=== PATIENT | female | born 1985 | race Caucasian/White ===

== ENCOUNTER → 2016-09-11 | Outpatient (CLI) | payer BC ==
[~2016-09-11] MED LIST: PRENTAB26 PO
== END | disposition home or self-care (01) ==
LOC: C.PAPS 14:43
PROVIDERS: ATTEND Obstetrics & Gynecology
DX: Z34.01 Encounter for supervision of normal first pregnancy, first trimester (principal)

== ENCOUNTER → 2016-09-11 | Outpatient (CLI) | payer BC ==
[2016-09-11 09:22] LABS: BASO % 0.1 %; BASO ABS # 0.01 K/uL (0-0.2); COMPLETE YES; EOS % 0.9 %; HEMATOCRIT 38.3 % (37-47); IG% 0.1 %; LYMPH % 25.6 %; LYMPH ABS # 2.01 K/uL (1.2-3.4); MEAN CELL VOLUME 81.3 fL (80-100); MEAN CORPUSCULAR HEMOGLOBIN 28.5 pg (25-34); MEAN PLATELET VOLUME 9.5 fL (7.4-10.4); MONO % 7.8 %; NEUT % 65.5 %; PLATELET COUNT 238 K/uL (130-400); RED BLOOD COUNT 4.71 M/uL (4.2-5.4); WHITE BLOOD COUNT 7.84 K/uL (4.8-10.8)
[2016-09-14 12:35] LABS: CHLAMYDIA TRACH RNA*** NOT DETECTED (NOT DETECTED); GC (NEIS GONORRHOEAE)RNA** NOT DETECTED (NOT DETECTED)
== END | disposition home or self-care (01) ==
LOC: C.LAB1850 08:35
PROVIDERS: ATTEND Obstetrics & Gynecology
DX: Z34.01 Encounter for supervision of normal first pregnancy, first trimester (principal)

== ENCOUNTER → 2016-11-06 | Outpatient (CLI) | payer BC ==
[2016-11-06 11:43] LABS: GTGD 50 Grams
== END | disposition home or self-care (01) ==
LOC: C.LAB1850 09:12
PROVIDERS: ATTEND Obstetrics & Gynecology
DX: Z34.02 Encounter for supervision of normal first pregnancy, second trimester (principal)

== ENCOUNTER → 2017-01-29 | Outpatient (CLI) | payer BC ==
[2017-01-29 10:33] LABS: HEMATOCRIT 39.5 % (37-47)
[2017-01-29 10:44] LABS: ESTIMATED AVERAGE GLUCOSE 123 mg/dl; HA1C FLAG Normal (Normal)
[2017-01-29 11:00] LABS: BLOOD UREA NITROGEN 13 mg/dl (7-18); CALCIUM 8.5 mg/dl (8.5-10.1); CARBON DIOXIDE 24 mmol/L (21-32); CHLORIDE 109 mmol/L (98-107); CREATININE 0.66 mg/dl (0.60-1.20); GLUCOSE 145 mg/dl (70-99); POTASSIUM 3.9 mmol/L (3.5-5.1); SODIUM 141 mmol/L (136-145)
[2017-01-29 12:28] LABS: URINE APPEARANCE TURBID (CLEAR); URINE BILIRUBIN NEG (NEG); URINE COLOR YELLOW; URINE EPITHELIAL CELL AUTO >30 /lpf (0-5); URINE NITRITE NEG (NEG); URINE SPECIFIC GRAVITY 1.032 (1.000-1.030); UROBILINOGEN NEG (NEG)
[2017-01-29 12:37] LABS: MANUAL MICROSCOPIC REQUIRED? NO; REVIEW REQ? NO
== END | disposition home or self-care (01) ==
LOC: C.LAB1850 10:01
PROVIDERS: ATTEND Obstetrics & Gynecology
DX: O24.414 Gestational diabetes mellitus in pregnancy, insulin controlled (principal)

== ENCOUNTER → 2017-03-30 | Outpatient (CLI) | payer BC | END | disposition home or self-care (01) | LOC: C.LABSPEC 14:50 | PROVIDERS: ATTEND Obstetrics & Gynecology | DX: Z34.03 Encounter for supervision of normal first pregnancy, third trimester (principal) ==

== ENCOUNTER 2017-04-01 23:20 | Inpatient (IN) | payer BC ==
[~2017-04-01] VITALS: Ht 170.2 cm; Wt 135.0 kg
[2017-04-02 00:02] VITALS: Ht 170.2 cm; Wt 135.0 kg
[2017-04-02] MEDS ORDERED: LACTATED RINGER'S 1000ML 1,000 ML IV PRN (00:11)
[2017-04-02] MEDS ORDERED: MISOPROSTOLTAB 50 MCG TAB PO ONE (00:15)
[2017-04-02 01:00] LABS: HEMATOCRIT 38.2 % (37-47); MEAN CELL VOLUME 87.8 fL (80-100); MEAN CORPUSCULAR HEMOGLOBIN 29.7 pg (25-34); MEAN CORPUSCULAR HGB CONC 33.8 g/dl (32-36); MEAN PLATELET VOLUME 10.1 fL (7.4-10.4); PLATELET COUNT 237 K/uL (130-400); RED BLOOD COUNT 4.35 M/uL (4.2-5.4); WHITE BLOOD COUNT 12.68 K/uL (4.8-10.8)
[2017-04-02] MEDS ORDERED: MISOPROSTOLTAB 50 MCG TAB ONE (02:28)
[2017-04-02] MEDS ORDERED: LACTATED RINGER'S 1000ML 500 ML IV PRN ×2 (06:41→12:19)
[2017-04-02] MEDS ORDERED: OXYTOCIN 30 UNITS/500ML NSS IV PRN (06:45)
[2017-04-02] MEDS: LACTATED RINGER'S 1000ML 1,000 ML IV SCH ×4 (08:14→19:39)
--- NOTE | 2017-04-02 09:36 | Medical Student: [facility] ---
Medical Student Progress Note Date of Service Apr 02, 2017. Progress Note Martina is a 30 year old female who presented last night due to ROM. She is doing well and rates her pain 5/10. She has not received an epidural but is considering one. EFM shows a baseline of 140 bpm with moderate variability. Accels are present. Absent decels. [place] does not show any ctx but pt reports ctx occurring every 10 min. Cx is 50/-[address] Benavides.
[2017-04-02] MEDS ORDERED: NURSING VERBAL MED ORDER ONE (10:15)
[2017-04-02] MEDS ORDERED: BUTORPHANOL TARTRATE 1 MG/ML VIAL ONE (10:16)
[2017-04-02] MEDS ORDERED: BUTORPHANOL TARTRATE 1 MG/ML VIAL IV PRN (11:00)
[2017-04-02] MEDS ORDERED: EpHEDrine SULFATE INJ 50 MG/ML AMP ONE (11:31)
[2017-04-02] MEDS ORDERED: BUPIVACAINE 0.25% 30 ML VIAL ONE (11:31)
[2017-04-02] MEDS ORDERED: FENTANYL CITRATE INJ 50 MCG/1 ML 2 ML VIAL ONE (11:31)
[2017-04-02] MEDS ORDERED: FENTANYL 2MCG/ML ROPIV 1.25MG/ML 100ML BAG EPI ONE (11:31)
[2017-04-02] MEDS ORDERED: NALOXONE HCL INJ 1 MG in SODIUM CHLORIDE 0.9% 1000ML 1,000 ML IV PRN (12:19)
[2017-04-02] MEDS ORDERED: PROMETHAZINE HCL INJ 6.25 MG in SODIUM CHLORIDE 0.9% 50ML 50 ML IV PRN (12:30)
[2017-04-02] MEDS ORDERED: ONDANSETRON INJ 2 MG/ML 2 ML VIAL IV PRN (12:30)
[2017-04-02] MEDS ORDERED: EpHEDrine SULFATE INJ 50 MG/ML AMP IV PRN (12:30)
[2017-04-02] MEDS ORDERED: NALOXONE HCL INJ 0.4 MG/1 ML VIAL/CARP IV PRN (12:30)
[2017-04-02] MEDS ORDERED: NALBUPHINE HCL INJ 10 MG/ML AMP IV PRN (12:30)
[2017-04-02] MEDS ORDERED: DiphenhydrAMINE HCL 50 MG/ML VIAL IV PRN (12:30)
[2017-04-02] MEDS: FENTANYL 2MCG/ML ROPIV 1.25MG/ML 100ML BAG EPI PRN ×2 (18:59→19:17)
[2017-04-02] MEDS ORDERED: ACETAMINOPHEN 500 MG TAB PO STA (20:55)
[2017-04-02] MEDS ORDERED: ACETAMINOPHEN 500 MG TAB PO ONE (20:56)
[2017-04-02] MEDS ORDERED: AMPICILLIN INJ 2,000 MG in SODIUM CHLORIDE 0.9% 50ML 50 ML IV SCH (22:00)
[2017-04-02] MEDS: AMPICILLIN IV 2,000 MG in SODIUM CHLOR 0.9% AD-VAN 100ML 100 ML IV SCH (22:38)
--- NOTE | 2017-04-02 22:54 | Pharmacy Progress Note ---
Pharmacy Abx Initial Consult Date of Service Apr 02, 2017. Pharmacy Dosing Scope Date of Consult: 04/02/17 Consultation requested by: Dr. Posada Pharmacy is consulted to initiate IV Gentamicin therapy, order appropriate labs and adjust drug dose/frequency. Subjective The patient is a 31 year old female admitted on Apr 02, 2017 at 00:13 with ruptured membranes. Pharmacy has received orders to initiate Ampicillin + Gentamicin IV. Objective Height (Feet): 5 Height (Inches): 7.00 Weight (Kilograms): 135.000 Lab Results (24Hrs) Laboratory Tests (24 Hours) Test 04/02/17 00:27 White Blood Count 12.68 K/uL (4.8-10.8) H Assessment & Plan Plan Gentamicin * Patient does not meet criteria for extended-interval aminoglycoside dosing due to ; will dose per traditional dosing * Dose: 210mg (~2.3mg/kg adjusted body weight) IV Q 8 hours * P'kinetic parameters: Vd 0.3L/kg; half-life ~4-5 hours * will check peak and trough levels with 4th dose * Goal peak: 6-8mcg/mL; Goal trough less than 1mcg/mL Pharmacy will continue to follow and will adjust dose/frequency as necessary. Thank you.
[2017-04-02] MEDS: DEXTROSE 5% IV SCH (23:28)
[2017-04-02] MEDS: GENTAMICIN IV SCH (23:28)
[2017-04-03] VITALS (7 sets, daily range): BP systolic 124–148; BP diastolic 69–89; PULSE 76–103; TEMP 36.6–37.2; O2SAT 98
[2017-04-03] MEDS ORDERED: OXYCODONE/ACETAMINOPHEN 5-325 TAB PO PRN (00:30)
[2017-04-03] MEDS ORDERED: LANOLIN OINT EXT PRN ×2 (00:30)
[2017-04-03] MEDS ORDERED: OXYTOCIN 30 UNITS/500ML NSS IV PRN (00:30)
[2017-04-03] MEDS ORDERED: BENZOCAINE 20% AER SPR 82.5 GM CAN EXT PRN (00:30)
[2017-04-03] MEDS ORDERED: HYDROCORTISONE ACETATE 25 MG SUPP PR PRN (00:30)
[2017-04-03] MEDS ORDERED: SUPERCREAM 0.870 % 15GM JAR EXT PRN (00:30)
[2017-04-03] MEDS: AMPICILLIN IV 2,000 MG in SODIUM CHLOR 0.9% AD-VAN 100ML 100 ML IV SCH (04:05)
[2017-04-03] MEDS: GENTAMICIN IV SCH (07:28)
[2017-04-03] MEDS: DEXTROSE 5% IV SCH (07:28)
--- NOTE | 2017-04-03 08:01 | OB/GYN Progress Note ---
[facility] Progress Note Date of Service Apr 03, 2017. Subjective conversation w/ patient, physical exam, chart review, lab review Ambulation: limited ambulation (to bathroom) Voiding: no voiding problems Passing Gas: Yes Diet Tolerance: Regular Diet Lochia: Small Feeding Type: Breast Feeding Pain: Denies much pain/cramping Review of Systems Constitutional: No fever, No chills Respiratory: No cough, No shortness of breath Cardiac: No chest pain Abdomen: No nausea, No vomiting, No diarrhea Female : No dysuria Objective Vital Signs Date Time Temp Pulse Resp B/P (MAP) Pulse Ox O2 Delivery O2 Flow Rate FiO2 04/03/17 07:52 Room Air 04/03/17 07:48 36.8 103 16 130/84 (99) Room Air 04/03/17 04:10 36.7 99 16 127/69 (88) Room Air 04/03/17 02:00 Room Air 04/03/17 02:00 37.2 94 18 139/72 (94) Room Air Physical Exam General Appearance: WELL-APPEARING, WD/WN, NO APPARENT DISTRESS Respiratory/Chest: no respiratory distress Cardiovascular: regular rate, rhythm Abdomen: non tender, soft Fundus: Firm, Tender (minimal, appropriate), Relation to Umbilicus (at umbilicus) Extremities: normal range of motion, non-tender, no pedal edema, no calf tenderness Exam by Dr. Posada Laboratory Results Last 24 Hours Test 04/02/17 12:48 04/02/17 19:08 04/02/17 22:05 Bedside Glucose 95 mg/dl 70 mg/dl 96 mg/dl Assessment and Plan Post- Day Number: 1 Continue Routine Care: 31yo s/p vaginal delivery, now PPD #1. - Blood type A positive. GBS negative. Rubella immune. - Vital signs reviewed and stable. Afebrile. Covering for chorioamnionitis with ampicillin & gentamicin. - Denies much pain. Received tylenol yesterday evening. - No leg swelling or tenderness on calf palpation. Encourage ambulation. - Encourage breast feeding. - Hemoglobin pre-delivery 12.9, post-delivery pending this am. Bleeding has improved. Continue to monitor clinically. - Continue post-vaginal delivery care. - Pt agreed with above plan, all current questions answered. Silvino Weaver MD, PGY1 Hand Thermal Cutter Physician Supervision Note: I was present with Dr. Weaver during the history and exam. I discussed the case with the resident and agree with the findings and plan as documented in the note. Any exceptions or clarifications are listed here: PPD#1 doing well. Continue routine care. For Chorioamnionitis: rec'd 1 dose of ampicillin 2g and gentamicin 1.5mg/kg prior to delivery, continued with one additional dose of each after delivery. Patient is afebrile. Documented By: Puja Posada Resident Tracking Resident Involvement: Resident Care Provided Care Provided: OB Delivery (morning rounds)
--- NOTE | 2017-04-03 09:14 | DELIVERY SUMMARY ---
DATE OF OPERATION: 04/02/2017 DATE OF DELIVERY: 04/02/2017 PREDELIVERY DIAGNOSES: 1. 31-year-old G2, P0-0-1-0 at 37 weeks 1 day. 2. Spontaneous rupture of membranes. 3. Gestational diabetes mellitus A2. 4. Chorioamnionitis. POSTDELIVERY DIAGNOSES: 1. 31-year-old G2, P0-0-1-0 at 37 weeks 1 day. 2. Spontaneous rupture of membranes. 3. Gestational diabetes mellitus A2. 4. Chorioamnionitis. PROCEDURE: Spontaneous vaginal delivery and repair of second degree perineal laceration. DELIVERING SURGEON: Dr. Posada. ESTIMATED BLOOD LOSS: 300 mL. FINDINGS: Viable male with Apgars 8 and 10. Weight 5 lb. 13.4 oz. COURSE OF LABOR: The patient was given 1 dose of oral Cytotec after presenting to labor and delivery with spontaneous rupture of membranes. She was 1 cm dilated upon arrival. She had minimal response to Cytotec and therefore was started on Pitocin. She began to progress with cervical dilation and progressed to complete. During labor she did have variable decelerations inconsistently throughout and an amnioinfusion was used to successfully treat variable decels. After the patient was completely dilated she began to push and during pushing the patient pushed for approximately 2.5 hours. The heart rate became tachycardic and maternal temperature elevated as high as 99.7 degrees fahrenheit however I believe this was artificially low given that we had just dosed the patient with 1000 mg of Tylenol for headache. Therefore the patient was diagnosed with chorioamnionitis and she received 1 dose of ampicillin 2 grams and approximately half of the dosage of gentamicin 1.5 mg/kg prior to delivery. The patient progressed to complete and pushed and then spontaneously vaginally delivered a viable male in the cephalic presentation with the head in left occiput anterior position. The head delivered and the shoulders delivered at the same time as well as the body. There was a cord wrapped around the body. This was untangled and the baby was placed on mother's abdomen. The cord was doubly clamped and cut. A spontaneous cry was heard as the baby was being passed to the pediatrics team. Cord segment was retained for gasses. Cord blood was obtained and the placenta delivered spontaneously intact with 3-vessel cord. Pitocin was given, the uterus became firm. The vagina and uterus were swept of all clots and debris. The bladder was emptied with a red rubber catheter for 400 mL of clear yellow urine. The cervix, vagina and perineum were inspected and a second degree perineal laceration was noted. This was repaired in standard fashion with 3-0 Vicryl in a running stitch. Excellent hemostasis was achieved. Sponge, instrument and needle counts were correct x2 at the conclusion of the delivery. Mother and baby recovered well in the room in stable and good condition. We will give 1 additional dose of ampicillin and 1 dose of gentamicin after delivery for prevention of endomyometritis. The patient and baby tolerated the delivery well and sponge, instrument and needle counts were correct x2. I attest to the content of the Intraoperative Record and any orders documented therein. Any exception s are noted below.
--- NOTE | 2017-04-03 10:27 | Anesthesia Procedure Note ---
Anesthesia Epidural Removal Nt Date & Time Apr 03, 2017 at 10:27 Vital Signs Pain Intensity: 0.0 Vital Signs Past 12 Hours Date Time Temp Pulse Resp B/P (MAP) Pulse Ox O2 Delivery O2 Flow Rate FiO2 04/03/17 07:52 Room Air 04/03/17 07:48 36.8 103 16 130/84 (99) Room Air 04/03/17 04:10 36.7 99 16 127/69 (88) Room Air 04/03/17 02:00 Room Air 04/03/17 02:00 37.2 94 18 139/72 (94) Room Air Notes Mental Status: alert / awake / arousable, participated in evaluation Nausea / Vomiting: adequately controlled Pain: adequately controlled Airway Patency, RR, SpO2: stable & adequate BP & HR: stable & adequate Hydration State: stable & adequate Neuraxial Anesthesia: was administered Anesthetic Complications: no major complications apparent, pt satisfied with anesthetic care Epidural: removed without complications, with tip intact
[2017-04-03] MEDS: DOCUSATE SODIUM 100 MG CAP PO SCH ×2 (11:46→20:09)
[2017-04-03] MEDS: IBUPROFEN 600 MG TAB PO PRN ×2 (11:46→21:10)
[2017-04-03] MEDS ORDERED: GENT. PEAK 1 EA IV ONE (23:00)
[2017-04-04] MEDS: IBUPROFEN 600 MG TAB PO PRN ×2 (06:22→11:53)
[2017-04-04 06:36] LABS: HEMATOCRIT 34.2 % (37-47)
[2017-04-04 07:50] VITALS: BP 128/84; PULSE 80; TEMP 36.7
[2017-04-04] MEDS: DOCUSATE SODIUM 100 MG CAP PO SCH (07:56)
--- NOTE | 2017-04-04 09:26 | Progress Note ---
Subjective Apr 04, 2017. Subjective conversation w/ patient, physical exam Ambulation: ambulating normally Voiding: no voiding problems Passing Gas: Yes Diet Tolerance: Regular Diet Lochia: Moderate Feeding Type: Breast Feeding Review of Systems Constitutional: No fever, No chills Respiratory: No cough Cardiac: No chest pain Abdomen: No nausea, No vomiting Objective Vital Signs Date Time Temp Pulse Resp B/P (MAP) Pulse Ox O2 Delivery O2 Flow Rate FiO2 04/03/17 23:25 36.8 91 20 130/89 (103) Room Air 04/03/17 23:25 Room Air 04/03/17 19:25 36.8 101 18 148/85 (106) Room Air 04/03/17 19:25 Room Air 04/03/17 16:10 36.8 76 16 124/83 (97) 98 Room Air 04/03/17 16:10 98 Room Air 04/03/17 11:11 36.6 85 18 128/86 (100) Physical Exam General Appearance: WELL-APPEARING, NO APPARENT DISTRESS Respiratory/Chest: no respiratory distress, no accessory muscle use Cardiovascular: no edema Abdomen: non tender, soft Fundus: Firm Extremities: no pedal edema, no calf tenderness Laboratory Results Last 24 Hours Test 04/04/17 06:14 Hemoglobin 11.4 g/dL Hematocrit 34.2 % Assessment and Plan Problem List Medical Problems: (1) Positive test Status: Acute (2) Vaginal bleeding Status: Acute Post- Day#: 1 Continue Routine Care: PPD2 vaginal delivery, A2GDM, recovered normally. Desires d/c today.
--- NOTE | 2017-04-04 09:27 | Discharge Instructions ---
Discharge Instructions Date of Service Apr 04, 2017. Admission Reason for Admission: Insulin Controlled Gestational Diabetes Mellitus Discharge Discharge Diagnosis / Problem: Vaginal delivery Discharge Goals Goal(s): Routine recovery after delivery Activity Recommendations Activity Limitations: per Instructions/Follow-up section . Instructions / Follow-Up Instructions / Follow-Up ACTIVITY RECOMMENDATIONS: * Gradual return to full activity over the next 2-3 weeks. * No lifting - nothing heavier than baby over the next 2-3 weeks. * Do not engage in vigorous exercise, sexual activity or sports until cleared by your physician. * Do not drive or operate any motorized equipment until cleared by your physician. * You may shower/bathe daily. MEDICATIONS: For discomfort or pain, you may use Acetaminophen (Tylenol), Ibuprofen (Advil), or Naproxen (Aleve) following the package directions. For constipation you may use Colace following the package directions. BREAST CARE: If you are not breast feeding: * Wear a supportive bra 24 hours a day for one to two weeks. * Avoid stimulating your breasts and nipples as much as possible during the first few weeks after delivery. * When taking a shower, have the warm water hit your back, not breasts. * When your breasts feel full, apply ice packs. Usually three to four times a day helps ease the discomfort. * Take a mild pain medication (Tylenol / Motrin) when you are uncomfortable. If breast feeding: * Use breast milk to lubricate nipples. [place] cream may be used for sore nipples. You do not need to remove cream prior to breast feeding. If using a different brand of cream, check the label for directions regarding removal of cream prior to nursing. * Wear a supportive bra. * If having problems with breasts or breast feeding, call a sr. consultant or your health care provider. EPISIOTOMY CARE: After delivery, if you have an episiotomy (stitches), the following steps will ease discomfort and aid healing. * For the first 24 hours after delivery, place ice packs next to your episiotomy to help reduce swelling. * After the first 24 hour-period, sitz baths, either portable or in the tub, are suggested. A shower with a shower arm sprayed over the episiotomy may be comforting. * Teresa care should be done after each voiding and bowel movement. Squirt warm water from a plastic bottle over the perineum (region of the body between the anus and urinary opening) and pat dry. * Use Dermoplast to ease discomfort. Shake container. [place] directly over the episiotomy. Place a Tucks on a clean sanitary pad next to your episiotomy. SPECIAL CARE INSTRUCTIONS: When you are discharged from the hospital, it is important for you to follow the instructions listed below: * During the first week at home, you should be able to care for yourself and your baby. In addition, the usual light household activities are encouraged. * Limit your activities to the way you feel. Do not try to clean the house or move furniture. Be sensible. * If you actively engage in sports and have done so up until the time of your delivery, you may resume these activities as soon as you feel able. This may take up to one month or even longer. Use good judgment. * Continue to take your vitamins for at least six weeks after the of your baby. * Your diet need not be limited unless you were on a special diet before your delivery. Breast-feeding mothers need around 2500 calories per day and at least 64-80 ounces of fluid per day (8 to 10 glasses). * You should eat foods from the four major food groups. Crash diets or fad diets are to be avoided. Eating lean meats, fresh fruits and vegetables, low-fat dairy products, high fiber foods and a regular exercise program, will help you get back to your pre- weight without putting your health at risk. * Constipation is sometimes a problem after delivery. Take a mild laxative as needed. If breast feeding, Milk of Magnesia is acceptable to use. You may use a suppository or Fleets enema if no episiotomy. * A daily shower or tub bath is suggested. Be sure to thoroughly and gently dry the perineum. * A bloody vaginal discharge will usually continue until around four weeks post . A small amount of bleeding may continue for as long as six weeks. Vaginal discharge changes from the bright red bleeding after delivery to pink then brownish and finally yellowish-pink before becoming white and disappearing. * Bleeding may increase with activity. Your first period may come in 4-8 weeks. If you are breast feeding, your period may be delayed even longer. * [place] (sex) can begin whenever both you and your partner feel comfortable and do not have any form of genital infection. It is recommended that you wait at least six weeks for internal and external healing to occur. If you have questions, please talk to your health care practitioner. A condom should be used to prevent infection and . * Foreplay, gentle intercourse and lubrication is very important the first several times to prevent pain. A water-based lubricant such as K-Y jelly or Astroglide may be used. * If you have RH negative blood and your baby is RH positive, you will receive RHOGAM by injection prior to discharge. The nurse will give you a card to keep with you that has the date and place that you received RHOGAM after delivery. * During your care, you had a Rubella screen done to check for the presence of rubella antibodies in your blood. If your test was negative, you will receive a Rubella vaccine prior to discharge. This vaccine may cause a fever, soreness at the injection site and flu-like symptoms. If these symptoms persist, notify your health care practitioner. is not advised for one month after a Rubella vaccine. * Verbalizes understanding of car seat law as reviewed with patient nursing. * Car Seat hand-out given and reviewed with patient by nursing. * Shaken baby information reviewed with patient by nursing. Call you doctor if: * Heavy bleeding (saturating several pads an hour) or passing clots the size of your fist. * A fever >101 degrees F (38.3 degrees C) on two occasions four hours apart and /or chills. * Unusual pain in the pelvic or vaginal areas. * "Baby Blues" lasting longer than two weeks. If you have any questions or concerns, call your health care practitioner at . FOLLOW UP VISIT: * Please call the office at to schedule a 6 week examination. It is important you keep this appointment. It is important for you to make arrangements for either yearly or twice yearly check-ups thereafter. Current Hospital Diet Patient's current hospital diet: Regular OB Diet Discharge Diet Recommended Diet: Regular Diet Pending Studies Studies pending at discharge: no Laboratory Results Hemoglobin A1c Test 01/29/17 10:06 Range/Units Estimated Average Glucose 123 mg/dl Hemoglobin A1c 5.9 H 4.5-5.6 % Medical Emergencies . Who to Call and When: Medical Emergencies: If at any time you feel your situation is an emergency, please call 911 immediately. . Non-Emergent Contact Non-Emergency issues call your: Primary Care Provider . . "Provider Documentation" section prepared by Sarah Cespedes. . VTE Core Measure Inpt VTE Proph given/why not?: Treatment not indicated
[2017-04-04 12:00] VITALS: BP 123/80; PULSE 73; TEMP 36.5
[2017-04-04 16:00] VITALS: BP 118/82; PULSE 76; TEMP 36.7
[2017-04-04 18:36] VITALS: BP_DIAS 82; PULSE 76; TEMP 36.7
[2017-04-04] MEDS ORDERED: BISACODYL 5 MG TABEC PO SCH (20:00)
== END 2017-04-04 18:38 | disposition home or self-care (01) | DRG 775 ==
LOC: C.OPB 23:20 → C.LD 23:20 → C.OPB 04-02 00:23 → C.OBG 04-03 14:44
PROVIDERS: ADMIT Obstetrics & Gynecology; ATTEND Obstetrics & Gynecology
PROC: 3E0P7GC Introduction of Other Therapeutic Substance into Female Reproductive, Via Natural or Artificial Opening (ICD-10-PCS; principal; 2017-04-02)
PROC: 10E0XZZ Delivery of Products of Conception, External Approach (ICD-10-PCS; principal; 2017-04-02)
PROC: 3E033VJ Introduction of Other Hormone into Peripheral Vein, Percutaneous Approach (ICD-10-PCS; principal; 2017-04-02)
PROC: 0KQM0ZZ Repair Perineum Muscle, Open Approach (ICD-10-PCS; principal; 2017-04-02)
DX: O42.12 Full-term premature rupture of membranes, onset of labor more than 24 hours following rupture (principal); O41.1230 Chorioamnionitis, third trimester, not applicable or unspecified; Z68.42 Body mass index [BMI] 45.0-49.9, adult; Z37.0 Single live birth; O70.1 Second degree perineal laceration during delivery; O76 Abnormality in fetal heart rate and rhythm complicating labor and delivery; O24.424 Gestational diabetes mellitus in childbirth, insulin controlled; O69.2XX0 Labor and delivery complicated by other cord entanglement, with compression, not applicable or unspecified; E66.9 Obesity, unspecified; O99.214 Obesity complicating childbirth; Z79.84 Long term (current) use of oral hypoglycemic drugs; Z3A.37 37 weeks gestation of pregnancy

== ENCOUNTER → 2017-10-20 | Outpatient (CLI) | payer OTHER ==
[2017-10-20 17:19] LABS: BASO % 0.2 %; BASO ABS # 0.01 K/uL (0-0.2); EOS % 1.2 %; EOS ABS # 0.08 K/uL (0-0.5); HEMATOCRIT 40.5 % (37-47); HEMOGLOBIN 13.9 g/dL (12.0-16.0); IG# 0.01 K/uL (0.00-0.02); LYMPH % 44.3 %; LYMPH ABS # 2.93 K/uL (1.2-3.4); MEAN CELL VOLUME 82.5 fL (80-100); MEAN CORPUSCULAR HEMOGLOBIN 28.3 pg (25-34); MEAN CORPUSCULAR HGB CONC 34.3 g/dl (32-36); MEAN PLATELET VOLUME 9.9 fL (7.4-10.4); MONO % 8.5 %; MONO ABS # 0.56 K/uL (0.11-0.59); NEUT % 45.6 %; NEUT ABS # 3.03 K/uL (1.4-6.5); PLATELET COUNT 226 K/uL (130-400); RED CELL DISTRIBUTION WIDTH CV 12.9 % (11.5-14.5); RED CELL DISTRIBUTION WIDTH SD 39.1 fL (36.4-46.3); WHITE BLOOD COUNT 6.62 K/uL (4.8-10.8)
[2017-10-20 17:58] LABS: ALBUMIN 3.3 gm/dl (3.4-5.0); ALT/SGPT 34 U/L (12-78); AST/SGOT 15 U/L (15-37); BLOOD UREA NITROGEN 20 mg/dl (7-18); CALCIUM 8.5 mg/dl (8.5-10.1); CARBON DIOXIDE 26 mmol/L (21-32); CREATININE 0.77 mg/dl (0.60-1.20); GLUCOSE 231 mg/dl (70-99); POTASSIUM 3.9 mmol/L (3.5-5.1); SODIUM 137 mmol/L (136-145); TOTAL PROTEIN 6.9 gm/dl (6.4-8.2)
[2017-10-20 18:09] LABS: ALKALINE PHOSPHATASE 49 U/L (45-117); CHOLESTEROL 123 mg/dl (0-200); LDL CHOLESTEROL CALCULATED 47 mg/dl
[2017-10-21 06:42] LABS: HEMOGLOBIN A1C 7.4 % (4.5-5.6)
== END | disposition home or self-care (01) ==
LOC: C.LAB1850 16:15
PROVIDERS: ATTEND Nurse Practitioner Adult Health
DX: Z00.00 Encounter for general adult medical examination without abnormal findings (principal); R73.01 Impaired fasting glucose

== ENCOUNTER → 2017-11-15 | Outpatient (CLI) | payer OTHER ==
[2017-11-15 13:32] LABS: HEP C IGG 13 YRS+OLDER_RFLX NEG (NEG)
== END | disposition home or self-care (01) ==
LOC: C.LAB1850 11:22
PROVIDERS: ATTEND Nurse Practitioner Adult Health
DX: Z77.21 Contact with and (suspected) exposure to potentially hazardous body fluids (principal)

== ENCOUNTER → 2017-11-19 | Outpatient (CLI) | payer OTHER | END | disposition home or self-care (01) | LOC: C.LAB1850 15:47 | PROVIDERS: ATTEND Nurse Practitioner Adult Health | DX: T14.8XXA Other injury of unspecified body region, initial encounter (principal); W46.1XXA Contact with contaminated hypodermic needle, initial encounter; Z77.21 Contact with and (suspected) exposure to potentially hazardous body fluids ==

== ENCOUNTER → 2017-11-26 | Outpatient (CLI) | payer OTHER ==
[2017-11-26 09:38] LABS: GLUCOSE,FASTING 135 mg/dl (70-99)
== END | disposition home or self-care (01) ==
LOC: C.LAB1850 07:03
PROVIDERS: ATTEND Internal Medicine Endocrinology, Diabetes & Metabolism
DX: E66.9 Obesity, unspecified (principal); E10.65 Type 1 diabetes mellitus with hyperglycemia; E05.90 Thyrotoxicosis, unspecified without thyrotoxic crisis or storm

== ENCOUNTER → 2017-12-28 | Outpatient (CLI) | payer OTHER ==
[2017-12-29 14:21] LABS: HEPATITIS C VIRAL RNA BY PCR <15 NOT DETECTED IU/ML (<15); HEPATITIS C VIRAL RNA(LOG) PCR <1.18 NOT DETECTED LOG IU/ML (<1.18)
== END | disposition home or self-care (01) ==
LOC: C.OCCH 09:02 → EDSTATUS 01-06 12:45
PROVIDERS: ATTEND Nurse Practitioner Adult Health
DX: Z77.21 Contact with and (suspected) exposure to potentially hazardous body fluids (principal)

== ENCOUNTER → 2017-12-28 | Outpatient (CLI) | payer OTHER | END | disposition home or self-care (01) | LOC: C.LAB1850 09:06 | PROVIDERS: ATTEND Internal Medicine Endocrinology, Diabetes & Metabolism | DX: E05.90 Thyrotoxicosis, unspecified without thyrotoxic crisis or storm (principal) ==

== ENCOUNTER 2020-11-17 03:10 | Inpatient (IN) ==
[2020-11-17] MEDS ORDERED: OXYTOCIN 30 UNITS/500 ML BAG IV PRN ×3 (07:09→16:50)
[2020-11-17] MEDS ORDERED: PENICILLIN G POTASSIUM 6 MU in DEXTROSE 5% 250 ML IV STA (07:24)
--- NOTE | 2020-11-17 07:24 | History & Physical Report ---
Date of Service November 17, 2020 Assessment & Plan (1) Type 2 diabetes mellitus affecting , antepartum: (2) Elderly multigravida: (3) affected by growth restriction: Although the patient is not in labor, I have a little concern about her strip. AT times it can be quite flat with minimal variability and there was an isolated decel. I have recommended induction given the setting of diabetes and IUGR and the appearance of the strip intermittently. I feel the risk of prematurity is outweighed by the concern for maintaining this in setting of iugr. She is agreeable. Plan pitocin, pcn for gbs positive, arom as indicated , epidural on demand. fetus is currently category one. History of Present Illness Chief Complaint: contractions Primary Care Provider: Michelle Hurst MD Patient is a 35yowf with iup at 38 0/7 weeks who presents to labor and delivery with contractions. When she called me she noted was having ctx q5-7 min. +fm. no lof/vb. is complicated by type 2 DM--has been on a baby asa, echo nl, ekg nl. IUGR diagnosed by her 36 week growth ultrasound AC 3%, efw 15%. Had been having twice weekly nsts that were reactive and uad/dvp weekly and normal. Patient has hx of a 36 week prom and delivery of a 4#13oz baby. labs--A+/ab-/ri/rprnr/hepb-/hiv-/gc/ct-/low risk panorama/qs neg/ gbs positive. Allergies Allergy/AdvReac Type Severity Reaction Status Date / Time No Known Allergies Allergy Verified 11/15/20 15:28 Home Medications Medication Instructions Recorded Confirmed Type prenat.vits,ady,niu-tead-ttdrm 1 tab PO DAILY 04/15/20 11/15/20 History Accu-Chek Jeaneth Plus test strp #100 ea NS 06/20/20 11/15/20 Rx Accu-Chek Fastclix Lancet Drum #102 ea NS 06/20/20 11/15/20 Rx acetone (urine) test #50 ea 07/04/20 11/15/20 Rx aspirin 81 mg PO DAILY 11/08/20 11/15/20 History Patient History Medical History Advanced maternal age (AMA) in Diabetes mellitus Encounter for anatomic survey Goiter Graves disease History of hyperthyroidism History of labor Hx of varicella Normal vaginal delivery Obesity Recurrent cold sores Supervision of normal intrauterine in multigravida Vitamin D deficiency Surgical History H/O bariatric surgery Gastric sleeve History of carpal tunnel surgery History of knee surgery History of laparoscopic cholecystectomy Family History Father Arteriosclerosis Unknown Leukemia Denies family history of Ovarian cancer Prostate cancer Myocardial infarction Breast cancer Colorectal cancer Social History Smoking Status: Never smoker Second Hand Exposure: No; Hx Alcohol Use: No Hx Substance Use: No Preferred Language: Yoruba Communication Ability: Effective Visual Impairment: No Limitations Hearing Ability: Normal Beliefs That Will Affect Care: None marital status: marital status details: Stuart Baca (33) [phone] Current Living Situation: Spouse and Family Current Living Situation Comment: 1 cat, not changing litter current occupational status: employed current occupation: [employer] How many Children do You have: 1 Other Information That Helps Us Care for You: No Feels Safe at Home: Yes Safety Concerns: Feels Safe At This Time Childhood Exposure to Second-Hand Smoke: No Diet Comment: Gastric sleeve Dental Care, Regularly: Yes Physical Activity Frequency: 5-6 Times per Week Seatbelt Use: always Sunscreen Use: Yes OB History g1--, 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, pprom, 4#13oz MMI TEACHER History noncontributory Physical Exam Constitutional: WD/WN, vitals as above Gastrointestinal (Abdomen): soft, gravid, nt Psychiatric: A+Ox3, euthymic affect Genitourinary: cx--3.5/75/-2/soft/mid efw 6-7 toco--rare intermittent efm--150s with min to mod variability, accels present , barely 15x15, one spon decel noted early in monitoring and not repeated Results & Data ([facility]) Vital Signs (Past 12 Hours) Vital Signs Temp Pulse Resp BP 11/17/20 07:02 36.8 C 67 18 128/75 11/17/20 03:26 85 133/84 11/17/20 03:22 85 133/84 11/17/20 03:20 36.7 C 18 Code Status & VTE Plan VTE Prophylaxis Plan VTE Prophylaxis will be ordered: No Coding Level of Care Code None Diagnoses Type 2 diabetes mellitus affecting , antepartum O24.119 Elderly multigravida O09.529 affected by growth restriction O36.5990
[2020-11-17 07:36] LABS: Hematocrit (blood only) 35.2 % (37-47); Hemoglobin 11.9 g/dL (12.0-16.0); Mean Corpuscular Hemoglobin 29.7 pg (25-34); Mean Corpuscular Hgb Conc 33.8 g/dL (32-36); Mean Corpuscular Volume 87.8 fL (80-100); Mean Platelet Volume 10.2 fL (7.4-10.4); Platelet Count 225 K/uL (130-400); RDW Coefficient of Variation 13.4 % (11.5-14.5); RDW Standard Deviation 42.9 fL (36.4-46.3); Red Blood Count 4.01 M/uL (4.2-5.4); White Blood Count 9.26 K/uL (4.8-10.8)
[2020-11-17] MEDS: LACTATED RINGER'S 1,000 ML IV PRN ×2 (07:45→13:17)
[2020-11-17] MEDS: PENICILLIN G POTASSIUM 3 MU in DEXTROSE 5% 100 ML IV PRN ×2 (11:52→16:00)
[2020-11-17] MEDS ORDERED: ePHEDrine sulfate 50 MG/ML AMP ONE (13:00)
[2020-11-17] MEDS ORDERED: SODIUM CHLORIDE 0.9% INJ 10 ML VIAL ONE (13:00)
[2020-11-17] MEDS ORDERED: BUPIVACAINE 0.25% 30 ML VIAL ONE (13:01)
[2020-11-17] MEDS ORDERED: fentaNYL citrate 100 MCG/2 ML VIAL ONE (13:01)
[2020-11-17] MEDS ORDERED: fentaNYL 2MCG/ML ROPIVACAINE 1.25MG/ML 100 ML BAG EPI ONE (13:01)
--- NOTE | 2020-11-17 13:18 | Labor Progress Brief Note ---
Date of Service November 17, 2020 Subjective Patient noting some contractions Assessment & Plan (1) affected by growth restriction: (2) Carrier of group B Streptococcus: (3) Type 2 diabetes mellitus affecting , antepartum: Admission and Anticipated Discharge Date Admission Date: November 17, 2020 Plan to proceed with epidural and then arom with iupc placement so we can trace contractions. Fetus is a category two at times but mostly category one with spontaneous accels. will continue to monitor closely.Blood sugars are within range of goal of 80-120. Has just received the second dose of pcn for gbs. anticipate . Physical Exam Constitutional: WD/WN, vitals as above Psychiatric: A+Ox3, euthymic affect Genitourinary: cx--deferred toco--very difficult tracing given body habitus. q4?, pit at 13 efm--150s with periods of minimal variability mixed with moderate. +small accels , ? rare late appearing decels, resolved with position change. Results & Data ([facility]) Vital Signs (Past 12 Hours) Vital Signs Temp Pulse Resp BP 11/17/20 11:53 66 128/76 11/17/20 11:05 36.9 C 20 11/17/20 10:52 69 128/75 11/17/20 09:52 72 136/83 11/17/20 08:52 69 125/83 11/17/20 07:02 36.8 C 67 18 128/75 11/17/20 03:26 85 133/84 11/17/20 03:22 85 133/84 11/17/20 03:20 36.7 C 18 Coding Level of Care Code None Diagnoses affected by growth restriction O36.5990 Carrier of group B Streptococcus Z22.330 Type 2 diabetes mellitus affecting , antepartum O24.119
--- NOTE | 2020-11-17 14:10 | Anesthesiology Consultation ---
Date of Service November 17, 2020 Assessment & Plan Chart Review Chart Review: Acceptable Risk for Labor Epidural Consults Requested none ASA [id number] Proposed Anesthesia Anesthesia Type: Labor Epidural and CSE Risk / Benefits Reviewed With: PT / POA / Parent / Guardian, Accepts Plan and Informed Consent Obtained History Height/Weight Height: 5 ft 7 in Weight: 126.099 kg Allergies Allergy/AdvReac Type Severity Reaction Status Date / Time No Known Allergies Allergy Verified 11/15/20 15:28 Medications Home Medications Medication Instructions Recorded Confirmed Last Taken prenat.vits,ady,stm-wcaj-sqoqs 1 tab PO DAILY 04/15/20 11/15/20 11/08/20 Accu-Chek Jeaneth Plus test strp #100 ea NS 06/20/20 11/15/20 Unknown Accu-Chek Fastclix Lancet Drum #102 ea NS 06/20/20 11/15/20 Unknown acetone (urine) test #50 ea 07/04/20 11/15/20 Unknown aspirin 81 mg PO DAILY 11/08/20 11/15/20 11/08/20 Active Medications Generic Name Dose Route Start Last Admin Trade Name Freq PRN Reason Stop Dose Admin Lactated Ringer's 1,000 mls @ 125 mls/hr 11/17/20 07:09 11/17/20 13:17 Lr IV 11/19/20 07:08 125 mls/hr .Q8H PRN Administration L&D Protocol Protocol Oxytocin 30 units in 500 mls @ 12 mls/hr 11/17/20 07:09 11/17/20 12:33 Pitocin IV 11/19/20 07:08 0.72 units/hr .Q24H PRN 12 mls/hr Labor Induction/Augmentation Titration Protocol 0.72 UNITS/HR Penicillin G Potassium 3 mu/ 106 mls @ 100 mls/hr 11/17/20 07:24 11/17/20 13:00 Dextrose IV 11/27/20 07:23 Infused Q4H PRN Infusion Give until delivery Past Medical History Medical History Advanced maternal age (AMA) in Diabetes mellitus Encounter for anatomic survey Goiter Graves disease History of hyperthyroidism History of labor Hx of varicella Normal vaginal delivery Obesity Recurrent cold sores Supervision of normal intrauterine in multigravida Vitamin D deficiency Past Family History Family History Father Arteriosclerosis Unknown Leukemia Denies family history of Ovarian cancer Prostate cancer Myocardial infarction Breast cancer Colorectal cancer Past Surgical History Surgical History H/O bariatric surgery Gastric sleeve History of carpal tunnel surgery History of knee surgery History of laparoscopic cholecystectomy Social History Smoking Status: Never smoker Hx Alcohol Use: No Hx Substance Use: No substance use type: does not use Physical Exam Vital Signs Last Vital Signs Temp 36.9 C 11/17/20 11:05 Pulse 83 11/17/20 14:07 Resp 20 11/17/20 11:05 BP 135/81 11/17/20 14:07 Pulse Ox 98 11/17/20 14:05 Testing Laboratory Results 11/17/20 07:17 11/17/20 11/17/20 11/17/20 13:30 12:32 11:32 POC Glucose 76 87 74 11/17/20 11/17/20 11/17/20 10:32 09:33 08:37 POC Glucose 82 95 96 11/17/20 07:40 POC Glucose 88
[2020-11-17] MEDS ORDERED: diphenhydrAMINE 50 MG/ML VIAL IV PRN (14:12)
[2020-11-17] MEDS ORDERED: ePHEDrine sulfate 50 MG/ML AMP IV PRN (14:12)
[2020-11-17] MEDS ORDERED: NALOXONE HCL 0.4 MG/1 ML VIAL/CARP IV PRN (14:12)
[2020-11-17] MEDS ORDERED: NALOXONE HCL 1 MG in SODIUM CHLORIDE 0.9% 1000ML 1,000 ML IV PRN (14:12)
[2020-11-17] MEDS ORDERED: fentaNYL 2MCG/ML ROPIVACAINE 1.25MG/ML 100 ML BAG EPI PRN (14:12)
--- NOTE | 2020-11-17 14:47 | Labor Progress Brief Note ---
Date of Service November 17, 2020 Subjective comfortable after epidural Assessment & Plan (1) affected by growth restriction: Admission and Anticipated Discharge Date Admission Date: November 17, 2020 period of tachysystole and resultant response have resolved with recussicitation. Plan to keep pit off for now. Will continue to monitor closely. Fetus category two but overall more reassuring now. Suspect some of this is related to the iugr. Physical Exam Constitutional: WD/WN, vitals as above Psychiatric: A+Ox3, euthymic affect Genitourinary: cx--6+/90/-1 arom of bulging bag with my finger, clear fluid toco--pit at 12, appears may have had a run of tachysystole with ctx q1-2min efm--150s with mod variability, variable type of decels, pit turned off, position changed, internals placed since pit off, ctx q2-4min, variable early with contractions. Results & Data ([facility]) Vital Signs (Past 12 Hours) Vital Signs Temp Pulse Resp BP Pulse Ox 11/17/20 14:41 74 130/76 11/17/20 14:40 71 100 11/17/20 14:39 70 135/80 11/17/20 14:37 64 135/76 11/17/20 14:35 72 126/74 98 11/17/20 14:33 86 130/80 11/17/20 14:31 83 128/76 11/17/20 14:30 70 96 11/17/20 14:29 72 127/78 11/17/20 14:27 72 125/77 11/17/20 14:25 83 125/76 97 11/17/20 14:23 75 132/76 11/17/20 14:21 73 129/74 11/17/20 14:20 71 97 11/17/20 14:19 74 127/73 11/17/20 14:17 75 128/72 11/17/20 14:15 78 18 129/75 96 11/17/20 14:13 73 128/75 11/17/20 14:11 72 132/76 11/17/20 14:10 77 98 11/17/20 14:09 78 136/79 11/17/20 14:07 83 135/81 11/17/20 14:05 74 130/82 98 11/17/20 14:03 77 127/76 11/17/20 14:01 71 132/84 11/17/20 14:00 70 18 97 11/17/20 13:58 71 133/83 11/17/20 13:55 73 98 11/17/20 13:50 72 99 11/17/20 13:45 72 99 11/17/20 13:40 78 98 11/17/20 13:35 64 97 11/17/20 13:30 67 98 11/17/20 13:25 69 98 11/17/20 13:20 67 99 11/17/20 13:15 69 99 11/17/20 13:14 68 143/86 H 11/17/20 11:53 66 128/76 11/17/20 11:05 36.9 C 20 11/17/20 10:52 69 128/75 11/17/20 09:52 72 136/83 11/17/20 08:52 69 125/83 11/17/20 07:02 36.8 C 67 18 128/75 11/17/20 03:26 85 133/84 11/17/20 03:22 85 133/84 11/17/20 03:20 36.7 C 18 Coding Level of Care Code None Diagnoses affected by growth restriction O36.5990
--- NOTE | 2020-11-17 15:29 | Communication Note ---
Date of Service: November 17, 2020 efm 145 with min to mod variability, early/variable with contractions toco--spaced to q4-5 min, plan to restart pitocin at 1 and go up by one slowly to get good mvux, each contraction is 50+ just not too close. Will continue to monitor the baby carefully.
--- NOTE | 2020-11-17 15:46 | Communication Note ---
Date of Service: November 17, 2020 rechecked cervix, one hour since last check. Unchanged. +scalp stim with exam, spon small accels. Restart pitocin and monitor carefully. Consider amnioinfusion if needed for variables. Broached the subject of possibility of c/s if baby does not tolerate contractions adequate enough for labor. patient and her so expressed understanding of this
[2020-11-17] MEDS ORDERED: ACETAMINOPHEN 325 MG TAB PO PRN (16:50)
[2020-11-17] MEDS ORDERED: IBUPROFEN 600 MG TAB PO PRN (16:50)
--- NOTE | 2020-11-17 16:53 | Delivery Summary ---
Vaginal Delivery Summary Date of Service November 17, 2020 Pre-operative Diagnosis: at 38 1/7 weeks iugr type 2 dm Post-operative Diagnosis: same Procedure: pitocin induction arom iupc fse epidural second degree laceration EBL: 300cc Anesthesia: epidural Procedure: The patient pushed for three contractions to deliver a viable in golden position. a lose nuchal cord x 1 reduced. There was also a loop of cord up under the neck. The nose and mouth were bulb suctioned on the perineum and the rest of the was then delivered without difficulty. The baby was vigorous. The nose and mouth were again bulb suctioned and the was placed in the maternal abdomen for drying and attention. Cord was clamped and cut at one minute of life. Cord blood and segment obtained. Placenta delivered spontaneous, intact with a three vessel cord. Cervix/sulci/rectum were intact. A second degree perineal laceration was repaired in the normal standard fashion. Hemostasis obtained with dilute pitocin and fundal massage. Apgars were 9/9. Mother and baby doing well at the end of the delivery. Vaginal Delivery Summary and 2nd Degree [place] [facility] [place] Charge Delivery Type Details: and 2nd Degree LAC
--- NOTE | 2020-11-17 18:31 | Anesthesiology Progress Note ---
Date of Service November 17, 2020 Anesthesia Post Procedure Vital Signs Vital Signs: Temp Pulse Resp BP Pulse Ox 11/17/20 18:28 78 130/65 11/17/20 18:13 77 122/63 11/17/20 17:58 79 132/74 11/17/20 17:44 76 115/85 11/17/20 17:29 77 141/65 H 11/17/20 17:14 73 128/67 11/17/20 16:58 71 127/63 11/17/20 16:45 72 139/67 11/17/20 16:40 76 97 11/17/20 16:35 80 99 11/17/20 16:32 71 86 L 11/17/20 16:30 69 99 11/17/20 16:28 70 136/84 11/17/20 16:25 85 90 11/17/20 16:22 71 131/64 11/17/20 16:20 82 99 11/17/20 16:18 70 130/72 11/17/20 16:15 62 99 11/17/20 16:12 66 115/63 11/17/20 16:10 62 97 11/17/20 16:08 63 112/63 11/17/20 16:05 65 97 11/17/20 16:02 89 123/77 11/17/20 16:00 66 98 11/17/20 15:57 71 123/73 11/17/20 15:55 67 96 11/17/20 15:52 67 123/73 11/17/20 15:50 64 98 11/17/20 15:48 64 125/72 11/17/20 15:45 72 97 11/17/20 15:42 68 129/81 11/17/20 15:40 77 99 11/17/20 15:37 64 126/76 11/17/20 15:35 64 97 11/17/20 15:33 69 129/77 11/17/20 15:30 72 18 98 11/17/20 15:27 67 121/72 11/17/20 15:25 66 100 11/17/20 15:22 71 119/74 11/17/20 15:20 69 100 11/17/20 15:17 67 127/78 11/17/20 15:15 69 100 11/17/20 15:12 65 125/77 11/17/20 15:10 66 100 11/17/20 15:07 63 125/76 11/17/20 15:05 63 100 11/17/20 15:03 63 126/74 11/17/20 15:00 68 18 100 11/17/20 14:57 64 125/76 11/17/20 14:55 72 100 11/17/20 14:53 63 124/74 11/17/20 14:50 70 100 11/17/20 14:47 75 124/76 11/17/20 14:45 36.9 C 72 20 100 11/17/20 14:41 74 130/76 11/17/20 14:40 71 100 11/17/20 14:39 70 135/80 11/17/20 14:37 64 135/76 11/17/20 14:35 72 126/74 98 11/17/20 14:33 86 130/80 11/17/20 14:31 83 128/76 11/17/20 14:30 70 20 96 11/17/20 14:29 72 127/78 11/17/20 14:27 72 125/77 11/17/20 14:25 83 125/76 97 11/17/20 14:23 75 132/76 11/17/20 14:21 73 129/74 11/17/20 14:20 71 97 11/17/20 14:19 74 127/73 11/17/20 14:17 75 128/72 11/17/20 14:15 78 18 129/75 96 11/17/20 14:13 73 128/75 11/17/20 14:11 72 132/76 11/17/20 14:10 77 98 11/17/20 14:09 78 136/79 11/17/20 14:07 83 135/81 11/17/20 14:05 74 130/82 98 11/17/20 14:03 77 127/76 11/17/20 14:01 71 132/84 11/17/20 14:00 70 18 97 11/17/20 13:58 71 133/83 11/17/20 13:55 73 98 11/17/20 13:50 72 99 11/17/20 13:45 72 99 11/17/20 13:40 78 98 11/17/20 13:35 64 97 11/17/20 13:30 67 98 11/17/20 13:25 69 98 11/17/20 13:20 67 99 11/17/20 13:15 69 99 11/17/20 13:14 68 143/86 H 11/17/20 11:53 66 128/76 11/17/20 11:05 36.9 C 20 11/17/20 10:52 69 128/75 11/17/20 09:52 72 136/83 11/17/20 08:52 69 125/83 11/17/20 07:02 36.8 C 67 18 128/75 11/17/20 03:26 85 133/84 11/17/20 03:22 85 133/84 11/17/20 03:20 36.7 C 18 Pain Intensity Abdomen: Pain Intensity: 4 Transfer of Care Handoff Completed per policy Notes Mental Status: alert / awake / arousable and participated in evaluation Patient Amnestic to Procedure: Yes Nausea / Vomiting: adequately controlled Pain: adequately controlled Airway Patency, RR, SpO2: stable & adequate BP & HR: stable & adequate Hydration State: stable & adequate Anesthetic Complications: no major complications apparent and Pt Satisfied with anesthetic care
[2020-11-17] MEDS ORDERED: BENZOCAINE 20% AER SPR 82.5 GM CAN EXT PRN (18:54)
[2020-11-17] MEDS ORDERED: DIPHTHERIA/TETANUS/PERTUSSIS 0.5 ML SYR/VIAL IM ONE (18:54)
[2020-11-17] MEDS ORDERED: SUPERCREAM 0.870% 15 GM JAR EXT PRN (18:54)
[2020-11-17] MEDS ORDERED: oxyCODONE/ACETAMINOPHEN 5mg/325mg TAB PO PRN (18:54)
[2020-11-17] MEDS ORDERED: bisacodyL 10 MG SUPP PR PRN (18:54)
[2020-11-17] MEDS ORDERED: HYDROCORTISONE ACETATE 25 MG SUPP PR PRN (18:54)
[2020-11-17 19:37] LABS: Cord Venous Blood HCO3 24 mmol/L (18.4-26.8); Cord Venous Blood PCO2 46 mmHg (30.4-57.2); Cord Venous Blood PO2 26 mmHg (14.1-43.3); Cord Venous Blood pH 7.34 (7.20-7.44); O2 Saturation Cord Venous Bld < 60.0 % (<68)
[2020-11-17] MEDS: DOCUSATE SODIUM 100 MG CAP PO SCH (20:29)
[2020-11-18 06:20] LABS: Hematocrit (blood only) 36.2 % (37-47)
--- NOTE | 2020-11-18 07:37 | Obstetrical Progress Note ---
Date of Service November 18, 2020 Assessment & Plan (1) Status post vaginal delivery: (2) affected by growth restriction: (3) Type 2 diabetes mellitus affecting , antepartum: Doing well. Routine pp care. Day #:: 1 Subjective Ambulation: ambulating normally Voiding: no voiding problems Passing Gas:: Yes Diet Tolerance:: regular diet Lochia:: Small Feeding Type:: bottle feeding Physical Exam Constitutional WD/WN, vitals as above Cardiovascular Extremities: + edema (tr); no calf tenderness Gastrointestinal (Abdomen) soft, nt, nd, ff/ nt 2 below u Psychiatric A+Ox3, euthymic affect Results & Data ([facility]) Vital Signs (Past 12 Hours) Vital Signs Temp Pulse Resp BP Pulse Ox 11/18/20 03:00 36.4 C L 82 16 133/89 98 11/17/20 23:10 36.7 C 76 16 143/91 H 98 11/17/20 21:30 140/84
[2020-11-18] MEDS ORDERED: PRENATAL VITAMIN 1 TAB PO SCH (08:00)
[2020-11-18] MEDS: DOCUSATE SODIUM 100 MG CAP PO SCH (08:27)
[2020-11-18] MEDS ORDERED: bisacodyL 5 MG TABEC PO SCH (20:00)
== END 2020-11-18 18:35 | disposition home or self-care (01) | DRG 805 ==
LOC: OPB 03:10 → 4S1 03:11 → 4S2 19:18